=== PATIENT | male | born 1985 | race Caucasian/White ===

== ENCOUNTER → 2016-07-24 | Outpatient (CLI) | payer BC ==
[~2016-07-24] MED LIST: NO HOME MEDICATIONS; PRIL40 PO
== END ==
LOC: COL.RAD 10:30
DX: R10.11 Right upper quadrant pain (principal)

== ENCOUNTER → 2016-08-12 | Outpatient (CLI) | payer BC | LOC: COL.RAD 07:58 | DX: R10.11 Right upper quadrant pain (principal) | CPT/HCPCS: A9537; J2805 ==

== ENCOUNTER 2016-09-02 07:58 | Day surgery (SDC) | payer BC ==
[~2016-09-02] VITALS: Ht 177.8 cm; Wt 104.5 kg
[~2016-09-02 07:58] MED LIST changes: -PRIL40 PO
[2016-09-02 08:50] VITALS: BP 148/89; PULSE 76; TEMP 98.1
[2016-09-02] MEDS ORDERED: PRIL40 PO (09:04)
[2016-09-02 10:04] VITALS: BP 154/77; PULSE 97; TEMP 98.4
[2016-09-02 10:20] VITALS: BP 152/78; PULSE 98
[2016-09-02 10:35] VITALS: BP 124/64; PULSE 92
[2016-09-02 10:37] VITALS: BP 145/70; PULSE 95
== END 2016-09-02 10:50 | disposition home or self-care (01) ==
LOC: SDCO 07:58
DX: K29.50 Unspecified chronic gastritis without bleeding (principal)
CPT/HCPCS: OP; J2250; J3010; J7030

== ENCOUNTER → 2016-09-05 | Outpatient (CLI) | payer BC ==
[~2016-09-05] MED LIST changes: +PRIL40 PO
== END ==
LOC: COL.RAD 07:40
DX: R10.84 Generalized abdominal pain (principal); R14.0 Abdominal distension (gaseous)
CPT/HCPCS: A9541

== ENCOUNTER → 2017-02-07 | Outpatient (CLI) | payer BC | LOC: COL.RAD 11:18 | DX: R10.84 Generalized abdominal pain (principal) | CPT/HCPCS: Q9967 ==